=== PATIENT | male | born 1960 | race Caucasian/White ===

== ENCOUNTER 2019-05-29 11:37 | Emergency (ER) | payer OTHER ==
[2019-05-29 13:58] VITALS: BP 136/78
--- NOTE | 2019-05-29 15:12 | ED ---
Upper Extremity Pain - HPI Summary HPI Summary: This patient is a 58-year-old male presenting to the ED with left medial elbow pain. Patient states symptoms have been present times possibly 2 weeks. He denies any injury, however states he first noticed it when lifting weights. He states every time he lifts weights, the pain worsens. He does not play any sports and he is not work. He denies any overuse activity of any sort other than lifting weights. He denies any erythema to the area. He continues to be able to flex and extend about the elbow, however with pain. Pain is worse with movement and palpation, better with rest. He has not tried ice the area, however his been using Motrin twice daily. Denies any numbness or tingling to the forearm or hand or fingertips. Denies any color temperature changes. - History of Current Complaint Chief Complaint: EDExtremityUpper Stated Complaint: L ELBOW PAIN PER PT Time Seen by Provider: 05/29/19 13:21 Hx Obtained From: Patient Onset/Duration: Started Hours Ago Timing: Constant Severity Initially: Moderate Severity Currently: Moderate Pain Location: Elbow Character: Aching - left elbow pain Aggravating Factor(s): Lifting, Flexion Alleviating Factor(s): Rest Associated Signs & Symptoms: Negative: Swelling, Redness, Bruising, Weakness, Numbness/Tingling Related History: Dominant Hand Right - Risk Factors Non-Orthopedic Risk Factor: Negative DVT Risk Factors: Negative Septic Arthritis Risk Factor: Negative Compartment Syndrome Risk Factors: Pain - Allergies/Home Medications Allergies/Adverse Reactions: Allergies Allergy/AdvReac Type Severity Reaction Status Date / Time No Known Allergies Allergy Verified 05/29/19 13:35 Home Medications: Home Medications Aspirin 81 mg CHEW TAB* [Aspirin Low Dose TAB*] 81 mg PO DAILY 08/21/13 [ History Confirmed 09/11/13] Simvastatin TAB(NF) [Zocor(NF)] 40 mg PO 1700 08/21/13 [History Confirmed ] glipiZIDE TAB* [Glucotrol TAB*] 10 mg PO BID 08/21/13 [History Confirmed ] metFORMIN* [Glucophage*] 1,000 mg PO 0800,1700 08/21/13 [History Confirmed 09/11] PMH/Surg Hx/FS Hx/Imm Hx Previously Healthy: Yes Endocrine/Hematology History: Reports: Hx Diabetes Respiratory History: Reports: Other Respiratory Problems/Disorders - POSS EXPOSURE TO TB DEC 2013 GI History: Reports: Other GI Disorders - HEP C - Immunization History Hx Pertussis Vaccination: No Immunizations Up to Date: Yes Infectious Disease History: No Infectious Disease History: Denies: Traveled Outside the [place] in Last 30 Days - Social History Occupation: Employed Full-time Lives: With Family Alcohol Use: None Hx Substance Use: No Substance Use Type: Reports: None Hx Tobacco Use: Yes Smoking Status (MU): Light Every Day Tobacco Smoker Review of Systems Negative: Fever, Chills, Fatigue, Skin Diaphoresis Negative: Palpitations, Chest Pain Negative: Shortness Of Breath, Cough Genitourinary: Negative Positive: no symptoms reported, see HPI Negative: Arthralgia, Myalgia Skin: Negative Neurological/Mental Status: Negative All Other Systems Reviewed And Are Negative: Yes Physical Exam Triage Information Reviewed: Yes Vital Signs On Initial Exam: Initial Vitals Temp Pulse Resp BP Pulse Ox 98.2 F 78 16 159/80 98 05/29/19 11:39 05/29/19 11:39 05/29/19 11:39 05/29/19 11:39 05/29/19 11:39 Vital Signs Reviewed: Yes Appearance: Positive: Well-Appearing, Well-Nourished Skin: Positive: Warm, Skin Color Reflects Adequate Perfusion Head/Face: Positive: Normal Head/Face Inspection Eyes: Positive: EOMI, DONOVAN, Conjunctiva Clear Neck: Positive: Supple, No Lymphadenopathy Respiratory/Lung Sounds: Positive: Clear to Auscultation, Breath Sounds Present Cardiovascular: Positive: RRR, Pulses are Symmetrical in both Upper and Lower Extremities Musculoskeletal: Positive: Normal, Strength/ROM Intact Neurological: Positive: Sensory/Motor Intact, Alert, Oriented to Person Place, Time Psychiatric: Positive: Normal, Affect/Mood Appropriate AVPU Assessment: Alert Procedures - Sedation Patient Received Moderate/Deep Sedation with Procedure: No Diagnostics - Vital Signs Vital Signs Temp Pulse Resp BP Pulse Ox 05/29/19 13:57 75 16 136/78 97 05/29/19 11:39 98.2 F 78 16 159/80 98 - Laboratory Lab Statement: Any lab studies that have been ordered have been reviewed, and results considered in the medical decision making process. Course/Dx - Course Course Of Treatment: Physical examination, patient has tenderness to the medial epicondyle. Pain with palpation and flexion and extension. No pain to the upper arm or forearm. No pain to the hand. Good powder room attendant strength throughout. Good pulses +2 bilaterally. No numbness or tingling. No color or temperature changes. X-ray obtained which shows no acute osseous injury. Likely this patient has medial epicondylitis. Discussed obtaining a special brace for the patient and will f/u with ortho if symptoms persist. Rest and ICE. - Diagnoses Differential Diagnosis/HQI/PQRI: Positive: Arthritis, Strain, Sprain Provider Diagnoses: Medial epicondylitis Discharge ED - Sign-Out/Discharge Documenting (check all that apply): Patient Departure - Discharge Plan Condition: Stable Disposition: HOME Patient Education Materials: Tennis Elbow (ED) Referrals: Didi Costa MD [Primary Care Provider] - Carlos Fischer MD [Medical Doctor] - Additional Instructions: You have what is known as "Golfer's Elbow" - similar to tennis elbow, but to the medial (inside) of the elbow. [employer] golfer's elbow fitness products - (brace) Research "golfers elbow brace" and you will find a lot of good products Please follow up with orthopedics [place] as directed Ice to the area Rest is very important for healing - Billing Disposition and Condition Condition: STABLE Disposition: Home - Attestation Statements Provider Attestation: I was available for consultation for this patient. I did not evaluate the patient, or participate in any medical decision making or disposition decisions unless I am specifically named in the chart as having consulted on the patient. If I have consulted on the patient, please see my own ED note on the patient encounter. Ronaldo Denis MD
== END 2019-05-29 13:57 | disposition home or self-care (01) ==
LOC: ED 11:37
DX: M77.02 Medial epicondylitis, left elbow (principal); E11.9 Type 2 diabetes mellitus without complications; F17.210 Nicotine dependence, cigarettes, uncomplicated
CPT/HCPCS: 99282

== ENCOUNTER 2023-02-06 06:28 | Inpatient (IN) ==
[2023-02-06 07:32] LABS: ABS Basophils 0.1 10^3/uL (0.0-0.1); ABS Eosinophils 0.2 10^3/uL (0.0-0.5); ABS Lymphocytes 2.4 10^3/uL (1.0-4.8); ABS Monocytes 0.8 10^3/uL (0.0-1.1); ABS Neutrophils 6.9 10^3/uL (1.5-7.6); Eosinophil % 1.7 %; Hematocrit 41.9 % (38-53); Hemoglobin 14.2 g/dL (13.2-16.3); Lymphocyte % 23.1 %; Mean Corpuscular Hemoglobin 29.3 pg (27-33); Mean Corpuscular Volume 86.1 fL (80-97); Mean Platelet Volume 7.8 fL (7.5-11.2); Platelet Count 286 10^3/uL (150-450); Red Blood Count 4.87 10^6/uL (4.06-5.63); Red Cell Distribution Width 13.5 % (12-17); White Blood Count 10.3 10^3/uL (3.6-10.2)
[2023-02-06 08:44] LABS: ALT 16 U/L (7-52); AST 33 U/L (13-39); Albumin 4.1 g/dL (3.2-5.2); Albumin/Globulin Ratio 1.6 (1-3); Alkaline Phosphatase 69 U/L (35-149); Anion Gap 11 mmol/L (2-16); Blood Urea Nitrogen 18 mg/dL (6-24); CO2 Carbon Dioxide 25 mmol/L (22-32); Calcium 9.4 mg/dL (8.6-10.3); Chloride 102 mmol/L (101-111); Creatinine, Serum 0.94 mg/dL (0.67-1.17); Globulin 2.6 g/dL (2-4); Glucose 199 mg/dL (70-100); Potassium 3.8 mmol/L (3.5-5.0); Sodium 138 mmol/L (135-145); Total Bilirubin 0.5 mg/dL (0.2-1.0); Total Protein 6.7 g/dL (6.4-8.9); eGFR CKD-EPI 92.8 (>60)
[2023-02-06 08:59] LABS: Acetaminophen < 15 mcg/mL; Alcohol, S < 13 mg/dL (<13); Salicylate < 2.50 mg/dL (<30)
[2023-02-06 10:27] LABS: Urine Appearance Clear; Urine Bilirubin Negative (Negative); Urine Blood Negative (Negative); Urine Color Yellow; Urine Glucose 3+(>=500 mg/dL) (Negative); Urine Ketones Negative (Negative); Urine Nitrite Negative (Negative); Urine Protein 1+(30 mg/dL) (Negative); Urine Specific Gravity 1.029 (1.002-1.030); Urine Urobilinogen Negative (Negative)
[2023-02-06 10:30] LABS: Urine Bacteria Absent (Absent); Urine Red Blood Cell Trace(0-2/hpf) (Absent); Urine White Blood Cell Trace(0-5/hpf) (Absent)
[2023-02-06 10:43] LABS: Urine Benzodiazepine Screen None Detected (None Detect); Urine Cannabinoids Screen None Detected (None Detect); Urine Opiates Screen None Detected (None Detect)
[2023-02-06] MEDS ORDERED: Al Hydrox/Mg Hydrox/Simet LIQ 30 ML UDC PO PRN (11:43)
[2023-02-06] MEDS: Aspirin EC 81 mg TAB.EC (enteric coated) PO SCH (13:29)
[2023-02-06] MEDS: DAPAGLIFLOZIN 10 MG PO SCH (14:25)
[2023-02-07 08:41] LABS: HDL Cholesterol 55.5 mg/dL
[2023-02-07] MEDS: Aspirin EC 81 mg TAB.EC (enteric coated) PO SCH (08:59)
[2023-02-07] MEDS: Vitamin THERAPEUTIC TAB PO SCH (09:00)
[2023-02-07] MEDS: DAPAGLIFLOZIN 10 MG PO SCH (09:01)
[2023-02-07] MEDS ORDERED: Nicotine GUM 4MG FRUIT FLAVOR PO PRN (15:23)
[2023-02-07] MEDS: Nicotine PATCH 21 MG/24 HR PATCH TRANSDERM SCH (15:34)
[2023-02-08] MEDS: Vitamin THERAPEUTIC TAB PO SCH (09:14)
[2023-02-08] MEDS: Aspirin EC 81 mg TAB.EC (enteric coated) PO SCH (09:14)
[2023-02-08] MEDS: Nicotine PATCH 21 MG/24 HR PATCH TRANSDERM SCH (09:16)
[2023-02-09 09:40] VITALS: BP 94/57
[2023-02-09] MEDS: Aspirin EC 81 mg TAB.EC (enteric coated) PO SCH (09:47)
[2023-02-09] MEDS: Nicotine PATCH 21 MG/24 HR PATCH TRANSDERM SCH (09:47)
[2023-02-09] MEDS: Vitamin THERAPEUTIC TAB PO SCH (09:48)
== END 2023-02-09 11:19 | disposition home or self-care (01) | DRG 754 ==
LOC: ED 06:28 → EDHOLD 11:34 → BSU 14:45
PROVIDERS: ADMIT Psychiatry & Neurology Psychiatry; ATTEND Student in an Organized Health Care Education/Training Program